=== PATIENT | male | born 1990 | race Caucasian/White ===

== ENCOUNTER 2025-02-01 10:25 | Emergency (ER) | payer OTHER ==
[~2025-02-01] VITALS: Ht 170.2 cm; Wt 60.7 kg
[2025-02-01] MEDS ORDERED: DOXYCYCLINE HY100 MG PO (11:19)
[2025-02-01 11:39] VITALS: BP 127/93
== END 2025-02-01 11:40 | disposition home or self-care (01) ==
LOC: ED 10:25
DX: H66.001 Acute suppurative otitis media without spontaneous rupture of ear drum, right ear (principal); Z88.0 Allergy status to penicillin
CPT/HCPCS: 99283